=== PATIENT | male | born 1975 | race African-American/Black ===

== ENCOUNTER 2017-02-09 21:51 | Inpatient (IN) | payer MEDICAID ==
[~2017-02-09] VITALS: Ht 195.6 cm; Wt 80.6 kg
[2017-02-09 22:54] LABS: Urine Bilirubin Negative (Negative); Urine Blood Negative /uL (Negative); Urine Color Yellow (Yellow); Urine Glucose Normal (Normal); Urine Ketone Negative (Negative); Urine Mucus FEW (None Seen); Urine Nitrite Negative (Negative); Urine RBC 1 /hpf (0 - 3); Urine Squamous Epithelial Cell FEW /hpf (<5); Urine pH 6.5 (5.0-8.0)
[2017-02-09 23:22] LABS: Basophils # (auto) 0.1 uL; Eosinophils # (auto) 0.3 uL; Eosinophils % (auto) 4.6 % (0.0-7.0); Hematocrit 42.7 % (41.0-53.0); Hemoglobin 14.5 g/dL (13.5-17.5); Lymphocytes # (auto) 2.6 uL; Lymphocytes % (auto) 47.6 % (10.0-50.0); Mean Corpuscular Hemoglobin 32.5 pg (28.0-32.0); Mean Corpuscular Volume 95.4 fL (80.0-100.0); Mean Platelet Volume 7.6 fL (6.9-10.8); Monocytes # (auto) 0.4 uL; Monocytes % (auto) 7.7 % (0.0-12.0); Neutrophils # (auto) 2.2 uL; Neutrophils % (auto) 39.1 % (37.0-80.0); Nucleated Red Blood Cells % 0.2 %; Platelet Count (auto) 247 10^3/uL (140-450); Red Cell Distribution Width 13.2 % (11.8-14.3); White Blood Cell 5.5 10^3/uL (4.4-10.8)
[2017-02-09 23:37] LABS: INR 0.99 (0.9-1.15); Partial Thromboplastin Time 28.4 sec (22.64-33.71); Prothrombin Time 10.8 sec (9.37-12.3)
[2017-02-09 23:54] LABS: Albumin 3.8 g/dL (3.4-5.0); Magnesium 1.7 mg/dL (1.6-2.6); Potassium 3.8 mmol/L (3.5-5.1)
[2017-02-09 23:57] LABS: BUN/Creatinine Ratio 12.1; Calcium 8.6 mg/dL (8.5-10.1)
[2017-02-10 00:02] LABS: Bilirubin, Total 0.9 mg/dL (0.2-1.0); Total Protein 7.6 g/dL (6.4-8.2)
[2017-02-10 06:13] LABS: Cholesterol 148 mg/dL (< 200); HDL Cholesterol 57 mg/dL (40-59); LDL Cholesterol 85 mg/dL (< 100); Triglycerides 88 mg/dL (< 150)
[2017-02-10] MEDS: NITROGLYCERIN 0.4 MG SL TAB SL PRN ×3 (06:35→11:22)
[2017-02-10] MEDS ORDERED: ACETAMINOPHEN 500 MG TAB PO ONE (06:45)
[2017-02-10] MEDS: ACETAMINOPHEN 500 MG TAB PO PRN ×2 (07:05→13:59)
[2017-02-10 09:09] VITALS: BP 104/52
[2017-02-10] MEDS: ASPirin 325 MG TAB PO SCH (10:00)
[2017-02-10] MEDS: ENOXAPARIN SOD 80 MG/0.8ML SYRINGE SC SCH ×2 (10:00→21:49)
[2017-02-10] MEDS ORDERED: ASPirin-EC 81 mg tab PO SCH (10:00)
[2017-02-10] MEDS: MORPHINE SULF INJ 2 MG/ML SYRINGE 1ML IV PRN ×5 (12:00→23:52)
[2017-02-10 21:27] VITALS: BP 112/66
[2017-02-10] MEDS ORDERED: ATORVASTATIN 20 MG TAB PO SCH ×2 (22:00)
[2017-02-11 05:13] VITALS: BP 114/59
[2017-02-11] MEDS: MORPHINE SULF INJ 2 MG/ML SYRINGE 1ML IV PRN ×4 (06:56→20:30)
[2017-02-11] MEDS ORDERED: IOHEXOL 350 MG/ML 100ML IJ ONE (07:19)
[2017-02-11] MEDS ORDERED: LIDOCAINE 2%HCL (LOCAL ANESTH.) INJ 20ML MDV ONE (07:19)
[2017-02-11 07:47] LABS: BUN/Creatinine Ratio 8.1; Calcium 8.6 mg/dL (8.5-10.1); Potassium 4.4 mmol/L (3.5-5.1)
[2017-02-11 08:00] VITALS: BP 114/59
[2017-02-11] MEDS ORDERED: SODIUM CHL 0.9% 50 ML ONE (08:57)
[2017-02-11] MEDS ORDERED: EPTIFIBATIDE INJ (2MG/ML) 10ML VIAL IV ONE (08:57)
[2017-02-11] MEDS ORDERED: MIDAZOLAM HCL 1MG/1ML-2 ML VIAL ONE (08:57)
[2017-02-11] MEDS ORDERED: fentaNYL CITRATE 100 MCG/2 ML VL ONE (08:57)
[2017-02-11] MEDS ORDERED: VERAPAMIL 2.5MG/ML INJ 2ML VIAL IV ONE (08:59)
[2017-02-11] MEDS ORDERED: ANGIOMAX 250 MG VIAL IV ONE (09:03)
[2017-02-11] MEDS ORDERED: PRASUGREL HCL 10 MG TAB ONE (09:20)
[2017-02-11] MEDS ORDERED: ASPirin 325 MG TAB ONE (09:36)
[2017-02-11] MEDS: ASPirin 325 MG TAB PO SCH (09:57)
[2017-02-11] MEDS ORDERED: PRASUGREL HCL 10 MG TAB PO SCH (10:00)
[2017-02-11] MEDS: ASPirin 81 mg TAB PO SCH (10:00)
[2017-02-11 12:45] VITALS: BP 117/67
[2017-02-11] MEDS ORDERED: NITROGLYCERIN 50MG/250ML 250 ML IV SCH (13:23)
[2017-02-11] MEDS ORDERED: MORPHINE SULFATE 4 MG/ML SYRG ONE (14:53)
[2017-02-11 16:00] VITALS: BP 130/66
[2017-02-11 19:57] VITALS: BP 120/67
[2017-02-11] MEDS: ATORVASTATIN 20 MG TAB PO SCH (22:22)
[2017-02-12] VITALS: BP 114/60
[2017-02-12] MEDS: MORPHINE SULF INJ 2 MG/ML SYRINGE 1ML IV PRN ×2 (03:00→11:46)
[2017-02-12 05:04] LABS: Basophils # (auto) 0 uL; Basophils % (auto) 0.6 % (0.0-2.0); Eosinophils # (auto) 0.2 uL; Eosinophils % (auto) 3.6 % (0.0-7.0); Hematocrit 41.7 % (41.0-53.0); Hemoglobin 14.3 g/dL (13.5-17.5); Lymphocytes # (auto) 1.4 uL; Mean Corpuscular Hemoglobin 32.5 pg (28.0-32.0); Mean Corpuscular Hgb Conc. 34.3 g/dL (32.0-36.0); Mean Corpuscular Volume 94.9 fL (80.0-100.0); Mean Platelet Volume 7.6 fL (6.9-10.8); Monocytes # (auto) 0.4 uL; Monocytes % (auto) 7.8 % (0.0-12.0); Neutrophils # (auto) 3.4 uL; Nucleated Red Blood Cells % 0.1 %; Platelet Count (auto) 213 10^3/uL (140-450); Red Cell Distribution Width 12.9 % (11.8-14.3); White Blood Cell 5.6 10^3/uL (4.4-10.8)
[2017-02-12 05:24] LABS: Calcium 8.6 mg/dL (8.5-10.1); Potassium 3.9 mmol/L (3.5-5.1)
[2017-02-12] MEDS ORDERED: CLOPIDOGREL 300 MG TAB PO ONE (07:45)
[2017-02-12] MEDS: HYDROcodone-ACET 5/325MG TAB PO PRN ×3 (08:18→23:16)
[2017-02-12] MEDS: ASPirin 81 mg TAB PO SCH (09:44)
[2017-02-12] MEDS ORDERED: PRASUGREL HCL 10 MG TAB PO SCH (10:00)
[2017-02-12 12:00] VITALS: BP 112/61
[2017-02-12 16:00] VITALS: BP 112/59
[2017-02-12] MEDS: ACETAMINOPHEN 500 MG TAB PO PRN (18:29)
[2017-02-12 19:46] VITALS: BP 123/67
[2017-02-12] MEDS: ATORVASTATIN 20 MG TAB PO SCH (22:08)
[2017-02-13 08:00] VITALS: BP 129/52
[2017-02-13] MEDS: HYDROcodone-ACET 5/325MG TAB PO PRN (08:04)
[2017-02-13] MEDS ORDERED: CLOPIDOGREL BISULFATE 75 MG TAB PO SCH (10:00)
[2017-02-13] MEDS: ASPirin 81 mg TAB PO SCH (10:07)
[2017-02-13 12:00] VITALS: BP 129/76
[2017-02-13 13:00] VITALS: BP 129/76
== END 2017-02-13 14:00 | disposition home or self-care (01) | DRG 174 ==
LOC: ER 21:55 → TELE 21:56 → TELE-E-ADS 02-10 08:45 → TELE-CENTR 02-10 17:54 → DOU IN ICU 02-11 12:50
PROVIDERS: ADMIT Nurse Practitioner Family; ATTEND Internal Medicine
PROC: 027034Z Dilation of Coronary Artery, One Artery with Drug-eluting Intraluminal Device, Percutaneous Approach (ICD-10-PCS; principal; 2017-02-11)
PROC: B2111ZZ Fluoroscopy of Multiple Coronary Arteries using Low Osmolar Contrast (ICD-10-PCS; 2017-02-11)
DX: I21.4 Non-ST elevation (NSTEMI) myocardial infarction (principal); F12.90 Cannabis use, unspecified, uncomplicated; I25.10 Atherosclerotic heart disease of native coronary artery without angina pectoris; Z87.891 Personal history of nicotine dependence
CPT/HCPCS: 36415; 71010; 80048; 80053; 80061; 80307; 81001; 82550; 83735; 84484; 85025; 85610; 85730; 86141; 86850; 86900; 86901; 87081; 92928; 93005; 93306; 93458; 94761; 96374; 99152; 99153; C1874; J2250

== ENCOUNTER 2018-09-17 13:27 | Inpatient (IN) | payer MEDICAID ==
[~2018-09-17] VITALS: Ht 195.6 cm; Wt 76.5 kg
[2018-09-17 14:25] LABS: Basophils # (auto) 0 uL; Basophils % (auto) 0.9 % (0.0-2.0); Eosinophils # (auto) 0.1 uL; Eosinophils % (auto) 1.4 % (0.0-7.0); Hematocrit 40.5 % (41.0-53.0); Hemoglobin 14.2 g/dL (13.5-17.5); Lymphocytes # (auto) 1.8 uL; Lymphocytes % (auto) 35.6 % (10.0-50.0); Mean Corpuscular Hemoglobin 34.9 pg (28.0-32.0); Mean Corpuscular Volume 99.7 fL (80.0-100.0); Monocytes # (auto) 0.6 uL; Neutrophils # (auto) 2.7 uL; Neutrophils % (auto) 51.1 % (37.0-80.0); Nucleated Red Blood Cells % 0.1 %; Platelet Count (auto) 288 10^3/uL (140-450); Red Blood Cells 4.07 10^6/uL (4.5-5.90); Red Cell Distribution Width 12.7 % (11.8-14.3); White Blood Cell 5.2 10^3/uL (4.4-10.8)
[2018-09-17 14:45] LABS: Alanine Aminotransferase 69 U/L (16-61); Albumin 3.8 g/dL (3.4-5.0); Anion Gap 5 (5-15); Aspartate Aminotransferase 42 U/L (15-37); BUN/Creatinine Ratio 10.3; Blood Urea Nitrogen 11 mg/dL (7-18); Calcium 8.9 mg/dL (8.5-10.1); Carbon Dioxide 29 mmol/L (21-32); Chloride 105 mmol/L (98-107); GFR African American 98 mL/min; GFR Non-African American 81 mL/min; Glucose 62 mg/dL (74-106); Magnesium 2.3 mg/dL (1.6-2.6); Potassium 3.9 mmol/L (3.5-5.1); Sodium 139 mmol/L (136-145)
[2018-09-17 14:50] LABS: Alkaline Phosphatase 63 U/L (45-117); Bilirubin, Total 0.8 mg/dL (0.2-1.0); Total Protein 7.8 g/dL (6.4-8.2)
[2018-09-17] MEDS ORDERED: MORPHINE SULFATE 4 MG/ML SYR/VIAL IV ONE (15:00)
[2018-09-17] MEDS ORDERED: ONDANSETRON HCL 4 MG/2 ML VIAL IV ONE (15:00)
[2018-09-17] MEDS ORDERED: ASPirin 81 mg TAB PO ONE (15:00)
[2018-09-17] MEDS ORDERED: ACETAMINOPHEN 500 MG TAB PO PRN (15:15)
[2018-09-17] MEDS ORDERED: traMADol HCL 50 MG TAB PO PRN (15:15)
[2018-09-17] MEDS ORDERED: MORPHINE SULF INJ 2 MG/ML SYRINGE 1ML IV PRN (15:15)
[2018-09-17] MEDS ORDERED: PROMETHAZINE HCL 25 MG/ML 1ML IV PRN (15:15)
--- NOTE | 2018-09-17 16:00 | NUR ---
Telemetry admit from ER [id number] admitted to Telemetry unit after SBAR received. Patient oriented to ELIZABETH hanson RN, unit, room, bed, and unit policies regarding patient care and visiting hours. Patient is A&Ox4, no signs or symptoms of distress. Patient now on continuous telemetry monitoring, tele box # 20 and telemetry reading on arrival to unit is SINUS RHYTHM IN THE 70'S. Patient weighed by bedscale and encouraged to call if they need something. Educated the patient on POC. All questions and concerns addressed, patient verbalized understanding. Bed is in the lowest, locked position and call light is within reach. Will round hourly and continue to monitor.
[2018-09-17 16:49] VITALS: BP 113/75
[2018-09-17] MEDS: SODIUM CHLORIDE 0.9% 1,000 ML IV SCH (17:21)
--- NOTE | 2018-09-17 17:30 | NUR ---
PAGED PHYSICIAN/RETURN CALL PAGED DR. PALMER FOR PAIN MEDICATION FOR PAIN 01/05. THE PHYSICIAN ORDERED MORPHINE 4MG Q4HR PRN. WILL PLACE ORDER AND CARRY OUT ORDER. WILL CONTINUE TO MONITOR.
--- NOTE | 2018-09-17 19:40 | NUR ---
Opening Shift Note Assumed care of patient, awake and alert. No S/S of distress/SOB but c/o pain 12/05, will medicate per md order. Girlfriend at bedside. Bed locked in lowest position, side rails upx2, call light within reach. Instructed on POC and to call for assist PRN, will continue to monitor for changes Q1hr and PRN.
[2018-09-17 19:47] LABS: CRP High Sensitivity 0.06 mg/dL (< 0.3)
[2018-09-17] MEDS: MORPHINE SULFATE 4 MG/ML SYR/VIAL IV PRN (19:55)
[2018-09-17 22:00] VITALS: BP 129/76
[2018-09-17] MEDS: METOPROLOL TARTRATE 25 MG TAB PO SCH (22:00)
[2018-09-17] MEDS: ATORVASTATIN 20 MG TAB PO SCH (22:08)
[2018-09-18] MEDS: MORPHINE SULFATE 4 MG/ML SYR/VIAL IV PRN ×6 (00:25→23:00)
[2018-09-18] MEDS: SODIUM CHLORIDE 0.9% 1,000 ML IV SCH ×2 (04:24→17:44)
[2018-09-18 05:00] VITALS: BP 129/82
[2018-09-18 06:36] LABS: Cholesterol 92 mg/dL (< 200); HDL Cholesterol 67 mg/dL (40-59); LDL Cholesterol 23 mg/dL (< 100); Triglycerides 87 mg/dL (< 150)
--- NOTE | 2018-09-18 06:43 | NUR ---
EKG done as ordered. Placed in chart.
--- NOTE | 2018-09-18 07:00 | NUR ---
Opening Shift Note Assumed care of patient, awake, alert, and oriented x4. No S/S of distress/SOB, but patient is reporting anterior upper left chest/shoulder pain of 4/10. IV is in right hand 20 gauge asymptomatic, intact, patent, and infusing normal saline at 75 mL/hour. Bed is locked and is in lowest position and call light is within reach. Instructed on POC and to call for assist PRN, and patient verbalized understanding. Will continue to monitor for changes Q1hr and PRN.
[2018-09-18 08:22] VITALS: BP 121/65
--- NOTE | 2018-09-18 10:00 | NUR ---
IV removal IV DC'd with clean sterile technique, catheter fully intact. Pressure dressing applied to site. Patient tolerated well.
--- NOTE | 2018-09-18 10:30 | NUR ---
IV insertion IV access obtained, via clean sterile technique by inserting 22 gauge catheter at right forearm after 1 attempt. IV secured properly. No trauma to site. Patient tolerated well.
[2018-09-18] MEDS: ASPirin 81 mg TAB PO SCH (10:50)
[2018-09-18] MEDS: PANTOPRAZOLE 40 MG TAB PO SCH (10:50)
[2018-09-18] MEDS: NITROGLYCERIN 0.2MG/HR TOPICAL PATCH TD SCH (10:50)
[2018-09-18] MEDS: METOPROLOL TARTRATE 25 MG TAB PO SCH ×2 (10:51→21:17)
--- NOTE | 2018-09-18 11:15 | NUR ---
Dr. Osman at bedside to residence counselor patient.
[2018-09-18 13:49] VITALS: BP 118/73
[2018-09-18 16:30] VITALS: BP 114/59
--- NOTE | 2018-09-18 19:35 | NUR ---
Patient not in the room at this time, noted AMA signed form at chart, will check patient again
--- NOTE | 2018-09-18 20:05 | NUR ---
Patient in the room now, oriented, respirations even and unlabored, no complains of pain at this time. Safety ensured, bed in lock and lowest position, call light within reach, will continue to monitor
[2018-09-18] MEDS: ATORVASTATIN 20 MG TAB PO SCH (21:15)
[2018-09-18 22:00] VITALS: BP 106/58
--- NOTE | 2018-09-19 01:10 | NUR ---
ROUNDING Patient sleeping at this time, respirations even and unlabored, will continue to monitor
[2018-09-19] MEDS: MORPHINE SULFATE 4 MG/ML SYR/VIAL IV PRN ×3 (03:09→22:44)
[2018-09-19 05:00] VITALS: BP 112/69
[2018-09-19 05:40] LABS: Eosinophils # (auto) 0.1 uL; Eosinophils % (auto) 3.3 % (0.0-7.0); Monocytes # (auto) 0.4 uL; Nucleated Red Blood Cells % 0.1 %; White Blood Cell 4.4 10^3/uL (4.4-10.8)
[2018-09-19 05:43] LABS: Basophils # (auto) 0 uL; Basophils % (auto) 0.8 % (0.0-2.0); Hematocrit 39.1 % (41.0-53.0); Hemoglobin 13.3 g/dL (13.5-17.5); Lymphocytes # (auto) 1.6 uL; Lymphocytes % (auto) 37.4 % (10.0-50.0); Mean Corpuscular Hemoglobin 34.6 pg (28.0-32.0); Mean Corpuscular Hgb Conc. 34.2 g/dL (32.0-36.0); Mean Corpuscular Volume 101.1 fL (80.0-100.0); Monocytes % (auto) 9.2 % (0.0-12.0); Neutrophils # (auto) 2.1 uL; Neutrophils % (auto) 49.3 % (37.0-80.0); Platelet Count (auto) 230 10^3/uL (140-450); Red Blood Cells 3.86 10^6/uL (4.5-5.90); Red Cell Distribution Width 12.5 % (11.8-14.3)
[2018-09-19] MEDS: SODIUM CHLORIDE 0.9% 1,000 ML IV SCH ×2 (05:46→22:50)
[2018-09-19 05:58] LABS: Potassium 3.9 mmol/L (3.5-5.1)
[2018-09-19 06:05] LABS: BUN/Creatinine Ratio 11.1; Calcium 8.4 mg/dL (8.5-10.1)
--- NOTE | 2018-09-19 08:00 | NUR ---
Opening Shift Note Assumed care of patient, awake, alert and oriented X4. No S/S of distress/SOB, complains of left sided chest pain, 12/05. Tele#20, sinus rhythm @ 76 bpm. IV to right forearm, 22 gauge, patent and infusing 0.9% NS @ 75 ml/hr. Instructed on POC and to call for assist PRN, verbalized understanding. Bed locked, in lowest position, call light within reach, will continue to monitor for changes Q1hr and PRN.
[2018-09-19 08:46] VITALS: BP 131/71
[2018-09-19] MEDS: NITROGLYCERIN 0.2MG/HR TOPICAL PATCH TD SCH (10:00)
[2018-09-19] MEDS: METOPROLOL TARTRATE 25 MG TAB PO SCH ×2 (10:00→22:45)
--- NOTE | 2018-09-19 11:15 | NUR ---
ROUNDS Dr Nishant Osman at bedside for rounds, new orders received and followed through. Patient updated on plan of care, verbalized understanding.
[2018-09-19] MEDS: ASPirin 81 mg TAB PO SCH (13:13)
[2018-09-19] MEDS: PANTOPRAZOLE 40 MG TAB PO SCH (13:14)
[2018-09-19 13:57] VITALS: BP 118/66
--- NOTE | 2018-09-19 16:10 | NUR ---
CARDIOLOGY Dr Valdez at bedside for Cardiology consult, new orders received and followed through. Patient updated on plan of care, verbalized understanding.
[2018-09-19 17:08] VITALS: BP 124/68
--- NOTE | 2018-09-19 19:13 | NUR ---
Care endorsed to CHEYANNE Arreaga, night nurse.
--- NOTE | 2018-09-19 19:45 | NUR ---
Opening Shift Note Assumed care of patient, awake and alert oriented x4. No S/S of distress/SOB noted. Bed is in lowest locked position with bed rails up x2 and call light is within reach of the patient. Instructed on POC and to call for assist PRN.
[2018-09-19 22:01] VITALS: BP 116/70
[2018-09-19] MEDS: ATORVASTATIN 20 MG TAB PO SCH (22:48)
[2018-09-20] MEDS: MORPHINE SULFATE 4 MG/ML SYR/VIAL IV PRN ×5 (02:44→20:29)
[2018-09-20 05:44] VITALS: BP 113/67
--- NOTE | 2018-09-20 07:45 | NUR ---
Opening Shift Note Assumed care of patient, alert and oriented x 4. No S/S of distress/SOB. IV 22g to right FA running NS @ 75ml/hr, intact and asymptomatic. Patient on tele box #20 showing SR @ 62 bpm. Bed rails up x 2 for patient safety and call light placed within reach. Instructed on POC and to call for assist PRN, will continue to monitor for changes Q1hr and PRN. Signed: 09/20/18 at 1448 by SN BRYSON <Co-Signature Required> Co-Signed: 09/20/18 at 1448 by Mohini Ahmadi RN
[2018-09-20 08:37] VITALS: BP 125/78
[2018-09-20] MEDS: METOPROLOL TARTRATE 25 MG TAB PO SCH ×2 (10:00→21:36)
[2018-09-20] MEDS: NITROGLYCERIN 0.2MG/HR TOPICAL PATCH TD SCH (10:00)
--- NOTE | 2018-09-20 11:05 | NUR ---
ROUNDS Dr Nishant Osman at bedside for rounds, no new orders received. Patient updated on plan of care, verbalized understanding.
[2018-09-20] MEDS: ASPirin 81 mg TAB PO SCH (11:56)
[2018-09-20] MEDS: PANTOPRAZOLE 40 MG TAB PO SCH (11:56)
[2018-09-20 12:32] VITALS: BP 114/70
[2018-09-20] MEDS: SODIUM CHLORIDE 0.9% 1,000 ML IV SCH ×2 (14:07→21:36)
[2018-09-20] MEDS: NICOTINE 14 MG/24HR TOPICAL PATCH TD SCH (16:30)
[2018-09-20 16:42] VITALS: BP 114/62
--- NOTE | 2018-09-20 19:15 | NUR ---
Care endorsed to CHEYANNE Arreaga, night nurse.
[2018-09-20] MEDS: NITROGLYCERIN 0.4 MG SL TAB SL PRN ×3 (20:48→21:06)
--- NOTE | 2018-09-20 21:00 | NUR ---
Chest Pain and nitro: Patient had complaints of chest pain 8/10 with pressure like pain in the chest. Patient requests Nitrostat sublingual to relieve the pain and refused nitro patch stating "I want to try one of those nitro tablets, not the patch." Initial blood pressure 115/60 heart rate 59. Patient had no relief after 5 minutes, blood pressure reassessed as 111/62 heart rate 57 and received another nitro tab. After 5 minutes patient reported little relief of chest pain and wanted to try once more. Blood pressure 114/71 heart rate 62 for third nitro. Patient reports some relief of pain at 6/10. Final blood pressure was 105/72 heart rate 55. No s/s of SOB noted. Patients breathing in even and unlabored resting on the bed.
[2018-09-20 21:31] VITALS: BP 110/58
[2018-09-20] MEDS: ATORVASTATIN 20 MG TAB PO SCH (21:34)
[2018-09-20] MEDS: TEMAZEPAM 15 MG CAP PO PRN (22:11)
[2018-09-21] MEDS: MORPHINE SULFATE 4 MG/ML SYR/VIAL IV PRN ×6 (00:30→21:40)
[2018-09-21 05:05] VITALS: BP 114/64
[2018-09-21 08:00] VITALS: BP 135/74
--- NOTE | 2018-09-21 08:00 | NUR ---
OPENING SHIFT NOTE. PATIENT LAYING IN BED LOW FOWLERS. A&O X4. NO S/S OF RESPIRATORY DISTRESS. PATIENT COMPLAINING OF PAIN. WILL MEDICATE PER EMAR. PATIENT UPDATED ON POC. ALL QUESTIONS ANSWERED. BED IN LOWEST LOCKED POSITION SIDE RAILS UPX2. WILL CONTINUE TO MONITOR PRN AND Q1HR. Signed: 09/21/18 at 1202 by SN LEXI <Co-Signature Required> Co-Signed: 09/21/18 at 1202 by Rand Roche RN
[2018-09-21 08:51] VITALS: BP 135/74
[2018-09-21] MEDS: METOPROLOL TARTRATE 25 MG TAB PO SCH ×2 (10:00→21:40)
[2018-09-21] MEDS: NICOTINE 14 MG/24HR TOPICAL PATCH TD SCH (10:00)
[2018-09-21] MEDS: NITROGLYCERIN 0.2MG/HR TOPICAL PATCH TD SCH (10:00)
[2018-09-21] MEDS: ASPirin 81 mg TAB PO SCH (10:15)
[2018-09-21] MEDS: PANTOPRAZOLE 40 MG TAB PO SCH (10:15)
--- NOTE | 2018-09-21 12:11 | NUR ---
AT BEDSIDE DR. DELUCA AT BEDSIDE DISCUSSING POC WITH PATIENT. PER MD, PATIENT OKAY TO SHOWER. ORDERS READ BACK AND VERIFIED.
[2018-09-21] MEDS: SODIUM CHLORIDE 0.9% 1,000 ML IV SCH (12:24)
[2018-09-21 13:00] VITALS: BP 113/65
--- NOTE | 2018-09-21 13:36 | NUR ---
NUTRITION ASSESSMENT NOTES Please refer to link notes of nutrition screen form filed under the intervention section of the plan of care for further details. Est. Needs: 1950 kcal to 2300 kcal (25-30 kcal/kgBW), 77 gms to 93 gms pro (1.0-1.2 gms/kgBW). Will continue to monitor pertinent labs and reassess nutrient need prn Thank you. Addendum: 09/21/18 at [address] Amended: Links added.
[2018-09-21 16:00] VITALS: BP_SYST 117; BP_SYST 134; BP_DIAS 65; BP_DIAS 78
--- NOTE | 2018-09-21 18:35 | NUR ---
END OF SHIFT PATIENT RESTING IN BED. NO S/S OF DISTRESS. INSTRUCTED PATIENT TO CALL PRN. BED IN LOWEST LOCKED POSITION, CALL LIGHT WITHIN REACH. ENDORSED CARE TO CHEYANNE JAFFE.
[2018-09-21] MEDS: ATORVASTATIN 20 MG TAB PO SCH (21:40)
[2018-09-21] MEDS: TEMAZEPAM 15 MG CAP PO PRN (22:15)
[2018-09-22 00:03] VITALS: BP 113/65
[2018-09-22] MEDS: MORPHINE SULFATE 4 MG/ML SYR/VIAL IV PRN ×3 (04:34→14:03)
[2018-09-22] MEDS: SODIUM CHLORIDE 0.9% 1,000 ML IV SCH ×2 (04:39→15:04)
[2018-09-22 05:39] VITALS: BP 116/73
--- NOTE | 2018-09-22 06:51 | NUR ---
Closing note: Patient is resting in bed breaths even and unlabored. No s/s of distress SOB noted. Bed is in lowest locked position with bed rails up x2 and call light is within reach of the patient. Will endorse care to day shift nurse.
--- NOTE | 2018-09-22 07:15 | NUR ---
Open Shift Note Received report on patient, awake and sitting on side of bed. Patient shows no signs of distress at this time but states always have chest pain 5/10. Discussed PRN medication for chest pain but patient states they only take the morphine, not the nitro because it gives him a headache. Educated patient about side effects from nitro, patient verbalized understanding. Discussed POC with patient and plans for stress test today. Patient aware to remain NPO. Bed in lowest locked position, side rails up x2 and call light within reach. Will continue to monitor.
[2018-09-22 07:31] LABS: BUN/Creatinine Ratio 7.7; Calcium 8.7 mg/dL (8.5-10.1)
[2018-09-22 09:00] VITALS: BP 121/69
[2018-09-22] MEDS ORDERED: ADENOSINE 64 MG in GIVE UN-DILUTED 0 ML IV STA (09:14)
[2018-09-22] MEDS: NITROGLYCERIN 0.2MG/HR TOPICAL PATCH TD SCH (10:00)
[2018-09-22] MEDS: NICOTINE 14 MG/24HR TOPICAL PATCH TD SCH (10:00)
[2018-09-22] MEDS: ASPirin 81 mg TAB PO SCH (10:00)
[2018-09-22] MEDS: METOPROLOL TARTRATE 25 MG TAB PO SCH (10:00)
[2018-09-22] MEDS: PANTOPRAZOLE 40 MG TAB PO SCH (10:00)
[2018-09-22 11:27] VITALS: BP 112/68
[2018-09-22 13:00] VITALS: BP 120/67
--- NOTE | 2018-09-22 15:24 | NUR ---
Dr Valdez Gave Clearance Dr Valdez called and stated that he reviewed the stress test and he is cleared for discharge.
[2018-09-22 15:25] VITALS: BP 113/65
[2018-09-22] MEDS ORDERED: ASPI81TA27 PO (15:32)
--- NOTE | 2018-09-22 16:30 | NUR ---
Discharged Discharge instructions given as ordered. Encourage to follow up with PMD as instructed. Instructed patient to obtain referral for route supervisor from primary care provider. All questions and concerns addressed. Patient verbalized understanding. IVs removed with catheters intact, pressure dressings applied. Telemetry unit returned to [facility]. Patient taken to vehicle via wheelchair with all personal belongings, accompanied by staff and family member. No distress noted at time of departure.
== END 2018-09-22 16:30 | disposition home or self-care (01) | DRG 198 ==
LOC: ER 13:28 → TELE 15:07 → TELE-WESTW 16:29
PROVIDERS: ADMIT Internal Medicine; ATTEND Internal Medicine
DX: R07.89 Other chest pain (principal); I25.10 Atherosclerotic heart disease of native coronary artery without angina pectoris; F12.90 Cannabis use, unspecified, uncomplicated; I10 Essential (primary) hypertension; Z95.5 Presence of coronary angioplasty implant and graft; F17.210 Nicotine dependence, cigarettes, uncomplicated; I25.2 Old myocardial infarction; Z82.49 Family history of ischemic heart disease and other diseases of the circulatory system
CPT/HCPCS: 36415; 71046; 78452; 80048; 80053; 80061; 82550; 83735; 84484; 85025; 85379; 85652; 86141; 93005; 93017; 94761; 96374; 96375; G0378; J0153; J2405

== ENCOUNTER 2020-01-10 07:22 | Emergency (ER) | payer MEDICAID ==
[~2020-01-10] VITALS: Ht 195.6 cm; Wt 78.0 kg
[~2020-01-10 07:22] MED LIST: ASPI-543 PO
[2020-01-10 08:38] VITALS: BP 106/65
[2020-01-10] MEDS ORDERED: cefTRIAXone SOD 1,000 MG VL IM ONE (09:45)
== END 2020-01-10 10:43 | disposition home or self-care (01) ==
LOC: ER 07:22
DX: Z48.00 Encounter for change or removal of nonsurgical wound dressing (principal); F17.210 Nicotine dependence, cigarettes, uncomplicated; Z79.82 Long term (current) use of aspirin; V29.9XXA Motorcycle rider (driver) (passenger) injured in unspecified traffic accident, initial encounter; Y93.89 Activity, other specified; Y92.89 Other specified places as the place of occurrence of the external cause; Y99.8 Other external cause status
CPT/HCPCS: 70450; 72040; 73630; 96372; 99284; J0696

== ENCOUNTER 2020-11-29 18:24 | Emergency (ER) | payer MEDICAID ==
[~2020-11-29] VITALS: Ht 188 cm; Wt 86.2 kg
[~2020-11-29 18:24] MED LIST changes: +AMOX500C2 PO; -ASPI-543 PO; +CLOP75TA70 PO; +IBUP600T27 PO; +METH500T22 PO; +NAP500T PO
[2020-11-29 18:56] VITALS: BP 178/96
== END 2020-11-29 23:52 | disposition left against medical advice (07) ==
LOC: EDBD 18:24 → ER 18:27
DX: R07.9 Chest pain, unspecified (principal); Z53.21 Procedure and treatment not carried out due to patient leaving prior to being seen by health care provider

== ENCOUNTER 2021-01-09 04:26 | Emergency (ER) | payer MEDICAID ==
[~2021-01-09] VITALS: Ht 190.5 cm; Wt 74.8 kg
[2021-01-09 04:29] VITALS: BP 149/93
== END 2021-01-09 07:05 | disposition left against medical advice (07) ==
LOC: ER 04:26
DX: S20.411A Abrasion of right back wall of thorax, initial encounter (principal); S80.211A Abrasion, right knee, initial encounter; M54.2 Cervicalgia; Z53.21 Procedure and treatment not carried out due to patient leaving prior to being seen by health care provider; W01.0XXA Fall on same level from slipping, tripping and stumbling without subsequent striking against object, initial encounter; Y93.89 Activity, other specified; Y92.89 Other specified places as the place of occurrence of the external cause; Y99.8 Other external cause status
CPT/HCPCS: 72040

== ENCOUNTER 2021-01-21 16:12 | Emergency (ER) | payer MEDICAID ==
[~2021-01-21] VITALS: Ht 195.6 cm; Wt 81.6 kg
[2021-01-21 16:30] VITALS: BP 126/78
[2021-01-21] MEDS ORDERED: KETOROLAC TROMETH 60MG/2ML VIAL IM ONE (17:15)
== END 2021-01-21 18:05 | disposition home or self-care (01) ==
LOC: ER 16:12
DX: S16.1XXA Strain of muscle, fascia and tendon at neck level, initial encounter (principal); S39.012A Strain of muscle, fascia and tendon of lower back, initial encounter; H60.93 Unspecified otitis externa, bilateral; I25.2 Old myocardial infarction; I25.10 Atherosclerotic heart disease of native coronary artery without angina pectoris; F17.210 Nicotine dependence, cigarettes, uncomplicated; Z79.899 Other long term (current) drug therapy; V49.49XA Driver injured in collision with other motor vehicles in traffic accident, initial encounter; Y93.89 Activity, other specified; Y92.488 Other paved roadways as the place of occurrence of the external cause; Y99.8 Other external cause status
CPT/HCPCS: 72040; 72100; 96372; 99284; J1885

== ENCOUNTER 2021-03-27 17:11 | Emergency (ER) | payer MEDICAID ==
[~2021-03-27] VITALS: Ht 193 cm; Wt 75.7 kg
[2021-03-27 21:24] VITALS: BP 103/60
== END 2021-03-28 01:10 | disposition home or self-care (01) ==
LOC: ER 17:11
DX: M70.41 Prepatellar bursitis, right knee (principal); I25.10 Atherosclerotic heart disease of native coronary artery without angina pectoris; I25.2 Old myocardial infarction; F17.210 Nicotine dependence, cigarettes, uncomplicated; Z79.899 Other long term (current) drug therapy
CPT/HCPCS: 73562; 76881